=== PATIENT | male | born 2000 | race Caucasian/White ===

== ENCOUNTER 2019-08-03 05:58 | Day surgery (SDC) | payer BC ==
[2019-07-30 11:36] LABS: BASOPHILS % (AUTO) 0.4 % (0-1); EOSINOPHILS # (AUTO) 0.1 X10'3 (0-0.9); EOSINOPHILS % (AUTO) 2.2 % (0-6); LYMPHOCYTES # (AUTO) 2.3 X10'3 (1.1-4.8); LYMPHOCYTES % (AUTO) 39.4 % (21-51); MEAN CORPUSCULAR HEMOGLOBIN 30.4 PG (27.0-31.0); MEAN CORPUSCULAR HGB CONC 34.5 g/dL (33.0-36.5); MEAN CORPUSCULAR VOLUME 88.1 FL (78-98); MEAN PLATELET VOLUME 8.5 FL (7.4-10.4); MONOCYTES # (AUTO) 0.4 X10'3 (0-0.9); MONOCYTES % (AUTO) 6.2 % (2-12); NEUTROPHILS # (AUTO) 3.1 X10'3 (1.8-7.7); NEUTROPHILS % (AUTO) 51.8 % (42-75); PRE OP HEMATOCRIT 44.6 % (42.0-52.0); PRE OP HEMOGLOBIN 15.4 g/dL (14.0-17.9); PRE OP PLATELET COUNT 293 X10'3 (140-440); RED BLOOD COUNT 5.07 X10'6 (4.70-6.10); RED CELL DISTRIBUTION WIDTH 13.2 % (11.5-14.5)
[2019-07-30 11:45] LABS: CLARITY,URINE SLIGHTLY CLOUDY (Clear); COLOR,URINE YELLOW (Yellow); GLUCOSE, URINE NEGATIVE (Neg); KETONES,URINE NEGATIVE (Neg); LEUKOCYTE ESTERASE ,URINE NEGATIVE (Neg); NITRITES, URINE NEGATIVE (Neg); OCCULT BLOOD,URINE NEGATIVE (Neg); PROTEIN,URINE NEGATIVE (Neg); UA COLLECTION TYPE VOIDED
[2019-07-30 11:53] LABS: ALBUMIN 4.2 G/DL (3.4-5.0); ALBUMIN/GLOBULIN RATIO 1.1 (1.1-1.5); ALKALINE PHOSPHATASE 90 IU/L (20-180); BLOOD UREA NITROGEN 13 MG/DL (7-18); BUN/CREATININE RATIO 13.5 (5.4-32.0); CALCIUM 9.7 MG/DL (8.5-10.1); CHLORIDE 106 MMOL/L (99-107); CREATININE 0.96 MG/DL (0.60-1.10); PRE OP ALT 36 U/L (30-65); PRE OP ANION GAP 7 (8-16); PRE OP AST 25 U/L (10-37); PRE OP BILIRUB, TOTAL 0.6 MG/DL (0.0-1.0); PRE OP GLUCOSE 88 MG/DL (70-104); PRE OP POTASSIUM 3.9 MMOL/L (3.4-5.1); PRE OP SODIUM 141 MMOL/L (135-145); TOTAL CARBON DIOXIDE 28.1 MMOL/L (24-32); TOTAL PROTEIN 8.2 G/DL (6.4-8.2); eGFR > 90 ML/MIN
[2019-07-30 11:53] LABS: AMORPHOUS PHOSPHATES 3+
[2019-07-30 11:54] LABS: MUCUS STRANDS FEW /LPF (Neg); SQUAMOUS EPITHELIAL CELL,UR FEW /LPF (FEW)
[2019-07-30 11:55] LABS: BACTERIA,URINE FEW /HPF (Neg); RBC,URINE 0-2 /HPF (0-2); WBC,URINE 0-4 /HPF (0-4)
[~2019-08-03] VITALS: Ht 172.7 cm; Wt 88.9 kg
[2019-08-03] VITALS (9 sets, daily range): BP systolic 121–148; BP diastolic 63–89
[~2019-08-03 05:58] MED LIST: NO HOME MEDS; cefazolin/dext.iso 2gm/100 ML IV ONE; famotidine 20mg tablet PO ONE; ringers solution, lacted 1,000 ML IV SCH
[2019-08-03] MEDS ORDERED: BUPIVAcaine/PF 2.5 mg/ml (0.25%) 30ml vial ONE (07:46)
[2019-08-03] MEDS ORDERED: methylene blue (5mg/ml) 50mg/10ml ampul IV ONE (07:46)
[2019-08-03] MEDS ORDERED: midazolam 2 mg/2 ml injection ONE (08:32)
[2019-08-03] MEDS ORDERED: propofol inj 20 ML IV ONE (08:35)
[2019-08-03] MEDS ORDERED: fentaNYL /PF 50mcg/ml 5ml ampule ONE (08:35)
[2019-08-03] MEDS ORDERED: rocuronium 10mg/ml inj IV ONE (08:35)
[2019-08-03] MEDS ORDERED: povidone-iodine 10% topical ointment 28.4gm TP ONE (09:15)
[2019-08-03] MEDS ORDERED: ringers solution, lacted 1,000 ML IV SCH (09:16)
[2019-08-03] MEDS ORDERED: ondansetron/PF 4mg/2ml inj IV PRN (09:20)
[2019-08-03] MEDS ORDERED: proCHLORperazine 10 MG/2 ml inj IV PRN (09:20)
[2019-08-03] MEDS ORDERED: morphine 4 MG/ML inj SYRINge IV PRN ×2 (09:20)
[2019-08-03] MEDS ORDERED: meperidine/PF 25mg/ml syringe IV PRN ×3 (09:20)
[2019-08-03] MEDS ORDERED: neostigmine methylsulfate 1 MG/ML 10ml vial ONE (09:24)
[2019-08-03] MEDS ORDERED: glycopyrrolate 0.2mg/ml inj ONE (09:24)
--- NOTE | 2019-08-03 09:40 | NUR ---
ADMITTED TO PACU FROM OR ACCOMPANIED BY ANESTHESIA. INTIAL PHYSICAL ASSESSMENT DONE AND RECORDED. REPORT RECEIVED FROM ANESTHESIA.
--- NOTE | 2019-08-03 10:45 | NUR ---
DISCHARGE CRITERIA MET, DISCHARGE INSTRUCTIONS GIVEN, DEMONSTRATES VERBAL UNDERSTANDING. DISCHARGED HOME IN GOOD CONDITION.
== END 2019-08-03 10:45 | disposition home or self-care (01) ==
LOC: PAS 05:58
PROVIDERS: ATTEND Surgery
DX: L05.01 Pilonidal cyst with abscess (principal); F17.290 Nicotine dependence, other tobacco product, uncomplicated; Z79.899 Other long term (current) drug therapy
CPT/HCPCS: 11771; 36415; 80053; 81001; 82948; 85025; J2250; J2704; J2710; J3010; J3490; Q9968; A4215; A4618; A6258; A6449; A7000; J7120

== ENCOUNTER 2019-08-09 01:35 | Emergency (ER) | payer BC ==
[~2019-08-09] VITALS: Ht 172.7 cm; Wt 86.0 kg
[~2019-08-09 01:35] MED LIST changes: -cefazolin/dext.iso 2gm/100 ML IV ONE; -famotidine 20mg tablet PO ONE; -ringers solution, lacted 1,000 ML IV SCH
[2019-08-09 02:10] VITALS: BP 118/75
--- NOTE | 2019-08-09 02:20 | NUR ---
pt given pillow. girlfriend at bedside. awaiting er md.
[2019-08-09] MEDS ORDERED: CEPH500C5 PO (02:28)
== END 2019-08-09 02:44 | disposition home or self-care (01) ==
LOC: ER 01:36
DX: L03.317 Cellulitis of buttock (principal)
CPT/HCPCS: 99283